=== PATIENT | male | born 1980 | race Hispanic/Latino ===

== ENCOUNTER 2019-01-11 15:06 | Emergency (ER) | payer OTHER | END 2019-01-11 16:51 | disposition home or self-care (01) | LOC: EDH 15:06 | DX: J06.9 Acute upper respiratory infection, unspecified (principal); H81.10 Benign paroxysmal vertigo, unspecified ear; R11.10 Vomiting, unspecified; I10 Essential (primary) hypertension; Z79.899 Other long term (current) drug therapy | CPT/HCPCS: 71045; 87804; 93005 ==